=== PATIENT | female | born 1965 | race Caucasian/White ===

== ENCOUNTER 2022-03-27 10:01 | Outpatient (CLI) | payer BC | END 2022-03-27 10:02 | disposition home or self-care (01) | LOC: MRI 10:01 → SCSMRI 10:02 | PROVIDERS: ATTEND Physician Assistant Medical | DX: K21.9 Gastro-esophageal reflux disease without esophagitis (principal); K75.81 Nonalcoholic steatohepatitis (NASH); R10.13 Epigastric pain; D64.9 Anemia, unspecified; K85.90 Acute pancreatitis without necrosis or infection, unspecified | CPT/HCPCS: 74183 ==

== ENCOUNTER 2024-08-13 19:00 | Inpatient (IN) | payer BC ==
[2024-08-13] MEDS ORDERED: fentaNYL 50 mcg/mL 1 mL Vial ONE (19:20)
[2024-08-13] MEDS ORDERED: Ondansetron PF 4 MG/2 ML Vial ONE (19:47)
[2024-08-13 19:50] LABS: #Basophils Less than 0.03 10x3/uL (0.0-0.2); #Eosinophils Less than 0.03 10x3/uL (0.0-0.7); %Eosinophils 0.1 % (0.0-10.0); %Lymphocytes 15.2 % (21.0-51.0); %Monocytes 5.9 % (0.0-10.0); %Neutrophils 77.7 % (42.0-75.0); Hematocrit 22.3 % (36.0-47.0); Mean Corpuscular HGB CONC 35.9 g/dL (32.0-36.0); Mean Corpuscular Hemoglobin 34.9 pg (27.0-31.0); Mean Corpuscular Volume 97.4 fL (78.0-98.0); Mean Platelet Volume 9.8 fL (7.4-10.4); Platelet Count 122 10x3/uL (130-400); RBC Distribution Width 19.9 % (11.5-14.5); Red Blood Cell (RBC) Count 2.29 mill/uL (4.20-5.40)
[2024-08-13 20:07] LABS: ALT (SGPT) 47 U/L (8-55); AST (SGOT) 115 U/L (5-34); Albumin 1.8 g/dL (3.5-5.0); Alkaline Phosphatase 66 U/L (40-110); Anion Gap 23 mmol/L (10-20); BUN (Urea Nitrogen) 34 mg/dL (9.8-20.1); Bilirubin, Total 10.9 mg/dL (0.2-1.2); Calc. Creatinine Clearance 0 mL/min (70-130); Calcium 8.5 mg/dL (7.8-10.44); Carbon Dioxide 17 mmol/L (22-29); Chloride 89 mmol/L (98-107); Estimated GFR 32; Globulin 4.5 g/dL (2.4-3.5); Glucose 83 mg/dL (70-105); Lipase 88 U/L (8-78); Potassium 3.6 mmol/L (3.5-5.1); Protein, Total 6.3 g/dL (6.0-8.3); Sodium 125 mmol/L (136-145)
[2024-08-13 20:13] LABS: Anisocytosis MODERATE=16-30 cells HPF (0-5); Macrocytosis MODERATE=16-30 cells HPF (0-5); Platelet Adequacy Comment Platelets Decreased; Polychromasia SLIGHT = 2-3 cells HPF (0-2); Target Cells SLIGHT = 2-5 cells HPF (0-1)
[2024-08-13] MEDS ORDERED: Scopolamine 1 mg/72 hour Patch TD PRN (22:47)
[2024-08-13] MEDS ORDERED: Ondansetron PF 4 MG/2 ML Vial IVP PRN (22:47)
[2024-08-13] MEDS ORDERED: Glycopyrrolate 0.2 MG/ML 5 ML SYRINGE SLOW IVP PRN (22:47)
[2024-08-14] MEDS: Morphine 2 MG/ML VIAL SLOW IVP PRN (02:04)
[2024-08-14] MEDS: Sodium Chloride 0.9% 1,000 ML IV SCH (02:04)
[2024-08-14 03:24] VITALS: BMI 39.4
[2024-08-14 04:38] LABS: Hematocrit 21.5 % (36.0-47.0); Hemoglobin 7.7 g/dL (12.0-16.0); Mean Corpuscular HGB CONC 35.8 g/dL (32.0-36.0); Mean Corpuscular Hemoglobin 34.8 pg (27.0-31.0); Mean Corpuscular Volume 97.3 fL (78.0-98.0); Mean Platelet Volume 10.5 fL (7.4-10.4); Platelet Count 110 10x3/uL (130-400); RBC Distribution Width 20.5 % (11.5-14.5); Red Blood Cell (RBC) Count 2.21 mill/uL (4.20-5.40)
[2024-08-14 05:08] LABS: ALT (SGPT) 47 U/L (8-55); AST (SGOT) 122 U/L (5-34); Albumin 1.7 g/dL (3.5-5.0); Alkaline Phosphatase 65 U/L (40-110); Anion Gap 20 mmol/L (10-20); BUN (Urea Nitrogen) 36 mg/dL (9.8-20.1); Bilirubin, Total 10.2 mg/dL (0.2-1.2); Calc. Creatinine Clearance 52 mL/min (70-130); Calcium 8.2 mg/dL (7.8-10.44); Carbon Dioxide 17 mmol/L (22-29); Chloride 93 mmol/L (98-107); Estimated GFR 31; Globulin 4.1 g/dL (2.4-3.5); Glucose 80 mg/dL (70-105); Potassium 3.8 mmol/L (3.5-5.1); Protein, Total 5.8 g/dL (6.0-8.3); Sodium 126 mmol/L (136-145)
[2024-08-14 07:04] LABS: Band 4 % (5-11); Lymphocytes 5 % (21-51); Monocytes 4 % (0-10); Neutrophil 87 % (42-75); Nucleated RBC (Manual Ct) 7 % (0); Plasma Cells 0 % (0-0); Platelet Adequacy Comment Appears Adequate; Total Cell Count 100
[2024-08-14 09:34] VITALS: TEMP 97.5
[2024-08-14] MEDS: Lorazepam 2 MG/ML VIAL SLOW IVP PRN (12:54)
[2024-08-14 13:04] VITALS: BP 94/60
== END 2024-08-14 17:26 | disposition hospice, inpatient (51) | DRG 442 ==
LOC: ERS 19:00 → MSONC 22:26
PROVIDERS: ADMIT Family Medicine; ATTEND Internal Medicine
DX: K72.90 Hepatic failure, unspecified without coma (principal); E87.1 Hypo-osmolality and hyponatremia; N17.9 Acute kidney failure, unspecified; K74.60 Unspecified cirrhosis of liver; K75.81 Nonalcoholic steatohepatitis (NASH); E66.01 Morbid (severe) obesity due to excess calories; I95.9 Hypotension, unspecified; D69.6 Thrombocytopenia, unspecified; D64.9 Anemia, unspecified; Z90.49 Acquired absence of other specified parts of digestive tract; Z88.0 Allergy status to penicillin; Z88.2 Allergy status to sulfonamides; Z90.89 Acquired absence of other organs
CPT/HCPCS: 36415; 80053; 83690; 85025; 93005; 96361; 96374; 96375; J2060; J2272; J2405; J3010; J7030

== ENCOUNTER 2024-08-14 17:47 | Inpatient (IN) | payer OTHER ==
[2024-08-14 17:51] VITALS: BMI 37.7
[2024-08-14] MEDS ORDERED: Glycopyrrolate 0.4 MG/ 2 ML VIAL SLOW IVP PRN (18:06)
[2024-08-14] MEDS ORDERED: Ondansetron PF 4 MG/2 ML Vial IVP PRN (18:08)
[2024-08-14] MEDS: Morphine 2 MG/ML VIAL SLOW IVP PRN (18:58)
[2024-08-14] MEDS: Lorazepam 2 MG/ML VIAL SLOW IVP PRN (21:24)
[2024-08-14] MEDS: Morphine 2 MG/ML VIAL SLOW IVP SCH (21:25)
[2024-08-14] MEDS: Scopolamine 1 mg/72 hour Patch TOP SCH (21:41)
[2024-08-14 22:50] VITALS: BP 64/37
[2024-08-15] MEDS: Scopolamine 1 mg/72 hour Patch TOP SCH (00:10)
== END 2024-08-15 07:30 | disposition expired | DRG 951 ==
LOC: MSONC 17:47
PROVIDERS: ADMIT Internal Medicine; ATTEND Internal Medicine
DX: Z51.5 Encounter for palliative care (principal); N17.9 Acute kidney failure, unspecified; E87.1 Hypo-osmolality and hyponatremia; K74.60 Unspecified cirrhosis of liver; K75.81 Nonalcoholic steatohepatitis (NASH); D69.6 Thrombocytopenia, unspecified; Z66 Do not resuscitate; Z88.0 Allergy status to penicillin; Z88.2 Allergy status to sulfonamides; E66.01 Morbid (severe) obesity due to excess calories; Z90.89 Acquired absence of other organs; Z90.49 Acquired absence of other specified parts of digestive tract; I95.9 Hypotension, unspecified; D64.9 Anemia, unspecified; Z79.899 Other long term (current) drug therapy
CPT/HCPCS: J2060; J2272